=== PATIENT | male | born 1930 | race Caucasian/White ===

== ENCOUNTER 2016-06-15 21:03 | Emergency (ER) | payer OTHER, MEDICAID ==
[~2016-06-15] VITALS: Ht 180.3 cm; Wt 107.0 kg
[2016-06-15 21:23] VITALS: BP 133/63; PULSE 83; RESP 18; TEMP 98.5; O2SAT 93
[2016-06-15] MEDS ORDERED: ALPRAZolam 0.25 MG TABLET PO ONE (22:15)
[2016-06-15] MEDS ORDERED: IBUPROFEN 800 MG TABLET PO ONE (22:15)
[2016-06-15 23:00] VITALS: BP 131/65; PULSE 85; RESP 18; TEMP 98.5; O2SAT 95
== END 2016-06-15 23:00 | disposition home or self-care (01) ==
LOC: SED 21:03
DX: G44.209 Tension-type headache, unspecified, not intractable (principal); I10 Essential (primary) hypertension; M54.2 Cervicalgia; J45.909 Unspecified asthma, uncomplicated; E11.9 Type 2 diabetes mellitus without complications
CPT/HCPCS: 93005; 99283